=== PATIENT | female | born 1960 | race Caucasian/White ===

== ENCOUNTER 2024-09-08 11:14 | Day surgery (SDC) | payer BC ==
[~2024-09-08] VITALS: Ht 165.1 cm; Wt 71.8 kg
[~2024-09-08 11:14] MED LIST: ABIL1TAB11 PO; ALBU8.5H INH; AMLO1TAB25 PO; ARIP1TAB6 PO; ASPI1TAB22 PO; CYCL-707 PO; FEXO-112 PO; GABA-1172 PO; LEVO25TA5 PO; LOSA50TA5 PO; MIDAZOLAM INJ 2MG/2ML VIAL As Ordered ONE; PHENYLEPHRINE 10% OPHTH SOL 5ML OS PRN; TOPR100T PO; fentaNYL 100 MCG/2 ML INJECTION As Ordered ONE
[2024-09-08] MEDS: OFLOXACIN 0.3 % (OCUFLOX) OPTH SOL 5ML OS ONE (11:37)
[2024-09-08] MEDS: LIDOCAINE 3.5 % 1ML OPHTH TOPICAL GEL OU ONE (11:37)
[2024-09-08] MEDS: ATROPINE SULFATE 1% OPHTH SOLN 2ML BTL OS SCH (11:38)
[2024-09-08] MEDS: PHENYLEPHRINE 2.5% OPHTH SOL 2ML OS SCH (11:38)
[2024-09-08] MEDS: TROPICAMIDE 1% OPHTH SOLN 15ML OS SCH (11:38)
[2024-09-08] MEDS: LIDOCAINE 1% SDV 5ML VIAL As Ordered ONE (12:33)
[2024-09-08] MEDS: CEFUROXIME 1MG/0.1ML INTRACAMERAL INJ As Ordered ONE (12:35)
[2024-09-08] MEDS: BSS IRRIG/VANCO(10MG)/TOBRA(5MG)/EPINEPH(1:1000-0.5CC)500ML BAG-ORONLY As Ordered ONE (12:35)
[2024-09-08 12:47] VITALS: BP 123/58; TEMP 97.1; O2SAT 100
== END 2024-09-08 13:04 | disposition home or self-care (01) ==
LOC: M SDC 11:14
PROVIDERS: ATTEND Ophthalmology
DX: H25.12 Age-related nuclear cataract, left eye (principal); I48.91 Unspecified atrial fibrillation; I10 Essential (primary) hypertension; E03.9 Hypothyroidism, unspecified; F41.9 Anxiety disorder, unspecified; Z87.891 Personal history of nicotine dependence; Z79.51 Long term (current) use of inhaled steroids; Z79.82 Long term (current) use of aspirin
CPT/HCPCS: 66984; J0697; J2250; J3010; V2632

== ENCOUNTER 2024-10-06 06:41 | Day surgery (SDC) | payer BC ==
[~2024-10-06] VITALS: Ht 165.1 cm; Wt 72.6 kg
[~2024-10-06 06:41] MED LIST changes: -MIDAZOLAM INJ 2MG/2ML VIAL As Ordered ONE; +PHENYLEPHRINE 10% OPHTH SOL 5ML OD PRN; -PHENYLEPHRINE 10% OPHTH SOL 5ML OS PRN; -fentaNYL 100 MCG/2 ML INJECTION As Ordered ONE
[2024-10-06] MEDS: OFLOXACIN 0.3 % (OCUFLOX) OPTH SOL 5ML OD ONE (07:00)
[2024-10-06] MEDS: LIDOCAINE 3.5 % 1ML OPHTH TOPICAL GEL OU ONE (07:00)
[2024-10-06] MEDS ORDERED: MIDAZOLAM INJ 2MG/2ML VIAL As Ordered ONE (07:12)
[2024-10-06] MEDS: PHENYLEPHRINE 2.5% OPHTH SOL 2ML OD SCH (07:26)
[2024-10-06] MEDS: CYCLOPENTOLATE 1% OPHTH SOLN 2ML BTL OD SCH (07:26)
[2024-10-06] MEDS: TROPICAMIDE 1% OPHTH SOLN 15ML OD SCH (07:26)
[2024-10-06] MEDS: BSS IRRIG/VANCO(10MG)/TOBRA(5MG)/EPINEPH(1:1000-0.5CC)500ML BAG-ORONLY As Ordered ONE (08:39)
[2024-10-06] MEDS: LIDOCAINE 1% SDV 5ML VIAL As Ordered ONE (08:39)
[2024-10-06] MEDS: CEFUROXIME 1MG/0.1ML INTRACAMERAL INJ As Ordered ONE (08:39)
[2024-10-06 08:50] VITALS: BP 142/87; TEMP 97.6; O2SAT 97
== END 2024-10-06 09:02 | disposition home or self-care (01) ==
LOC: M SDC 06:41
PROVIDERS: ATTEND Ophthalmology
DX: H25.11 Age-related nuclear cataract, right eye (principal); I48.91 Unspecified atrial fibrillation; I10 Essential (primary) hypertension; E03.9 Hypothyroidism, unspecified; Z79.890 Hormone replacement therapy; Z79.899 Other long term (current) drug therapy; Z79.82 Long term (current) use of aspirin; Z90.710 Acquired absence of both cervix and uterus; F17.290 Nicotine dependence, other tobacco product, uncomplicated; Z98.84 Bariatric surgery status
CPT/HCPCS: 66984; J0697; J2250; V2632

== ENCOUNTER → 2024-10-10 | Outpatient (CLI) | payer BC ==
[~2024-10-10] MED LIST changes: -PHENYLEPHRINE 10% OPHTH SOL 5ML OD PRN
== END ==
LOC: M RAD 11:07
PROVIDERS: ATTEND Student in an Organized Health Care Education/Training Program
DX: R06.02 Shortness of breath (principal)